=== PATIENT | male | born 1950 | race Caucasian/White ===

== ENCOUNTER 2018-12-07 21:05 | Emergency (ER) | payer MEDICARE, OTHER ==
[~2018-12-07] VITALS: Ht 180.3 cm; Wt 67.6 kg
[2018-12-07 21:08] VITALS: BP 164/102
--- NOTE | 2018-12-07 21:42 | NUR ---
PT REFUSING TO WAIT FOR A BED, EDUCATED ON TRIAGE AND BED ASSIGNMENT BASED ON ACUITY, PT WANTS TO LEAVE. PT AMBULATED FROM ER WITH STEADY GAIT.
== END 2018-12-07 21:44 | disposition left against medical advice (07) ==
LOC: ER 21:08
DX: Z53.21 Procedure and treatment not carried out due to patient leaving prior to being seen by health care provider (principal); M54.9 Dorsalgia, unspecified